=== PATIENT | female | born 1990 | race Two or more races ===

== ENCOUNTER 2016-12-24 14:35 | Outpatient (CLI) | payer MEDICAID ==
[~2016-12-24 14:35] MED LIST: IRON325 M1 PO; MOTRIN-DPS800 MG PO; NIPPLECREAM TP; PRENATAL GUMMI1 EACH PO; TYLENOL #3 DPS1 TAB PO
== END 2016-12-24 16:30 | disposition home or self-care (01) ==
LOC: 2LDRP 14:35 → BC 14:35
DX: O13.3 Gestational [pregnancy-induced] hypertension without significant proteinuria, third trimester (principal); Z3A.38 38 weeks gestation of pregnancy

== ENCOUNTER 2016-12-28 06:44 | Inpatient (IN) | payer MEDICAID ==
[~2016-12-28] VITALS: Ht 149.9 cm; Wt 73.9 kg
--- NOTE | ~2016-12-28 | FD ---
ADMIT: 12/28/2016 RM/LOC: 226 [facility] MR#: [id number] [address] [address] HAM GREENEMERLIN SALVADOR [address] [place] [address] Final Diagnosis SEX: F AGE: 26 : 1990 ADMISSION DATE: 12/28/2016 DISCHARGE DATE: 12/29/2016 PRIMARY DIAGNOSIS: Status post spontaneous vaginal delivery at term. SECONDARY DIAGNOSES: 1. Gestational hypertension. 2. Group B Streptococcus positive status. PROCEDURES PERFORMED: On 12/28/2016, spontaneous vaginal delivery with delivery of a viable female infant, weighing 6 pounds 8 ounces with scores of 9 at 1 minute and 9 at 5 minutes. Ángela Agudelo MD/ dolores JOB #: [id number] CC: Ángela Agudelo MD, Attending Physician FAMILY PHYSICIAN, Family Physician
--- NOTE | 2017-01-20 08:52 | HP ---
ADMIT: 12/28/2016 RM/LOC: 226 [facility] MR#: [id number] [address] MERLIN BAGLEY [address] [place] [address] History and Physical SEX: F AGE: 26 : 1990 DATE OF SERVICE: CHIEF COMPLAINT: Induction of labor. HISTORY OF PRESENT ILLNESS: This is a 26-year-old female, 3, para 2, who [facility] the [facility] with an intrauterine at 39 weeks' gestation with estimated date of confinement of 01/04/2017. Her estimated date of confinement is based of a 10-week ultrasound. Her has been complicated by close interval between pregnancies, anemia, and recently mildly-elevated blood pressures. Her blood pressures in the office last week were 120s over 90s and her hemoglobin was 7.5. LABORATORY DATA: Blood type is O positive. Antibody screen negative. Hepatitis B surface antigen negative. RPR nonreactive. Rubella immune. Gonorrhea and chlamydia negative. Quad screen. Normal diabetic screen 111 and group B strep is positive. PAST MEDICAL HISTORY: She denies hypertension, diabetes, asthma, kidney, or thyroid disease. PAST SURGICAL HISTORY: None. SOCIAL HISTORY: She is . She denies tobacco, alcohol, or drug use. ALLERGIES: NO KNOWN DRUG ALLERGIES. CURRENT MEDICATIONS: 1. vitamins. 2. Ferrous sulfate b.i.d. PAST OBSTETRICAL HISTORY She has had 2 term spontaneous vaginal deliveries. PHYSICAL EXAMINATION: VITAL SIGNS: Temperature 98.4, blood pressure 124/92, pulse 72, respirations 20. GENERAL: This is a pleasant female, in no acute distress. HEENT. Head is normocephalic and atraumatic. Pupils are equal, round, reactive to light and accommodation. Extraocular muscles are intact. NECK: Supple. HEART: Regular rate and rhythm. LUNGS: Clear bilaterally. ABDOMEN: Soft, nontender, nondistended, and gravid. EXTREMITIES: Nontender. FOOD PREPARATION KITCHEN AIDE: heart tones are 130s, baseline, moderate variability is present, 15 x 15 accelerations are present. Decelerations are absent. Uterine contractions are every 5 to 6 minutes. Her cervix is 5 cm, 70% effaced, and - 2 station. Fetus is vertex. Estimated weight 7.5 pounds. IMPRESSION: ADMIT: 12/28/2016 RM/LOC: 226 [facility] MR#: [id number] [address] MERLIN BAGLEY [address] [place] [address] History and Physical SEX: F AGE: 26 : 1990 1. This is a 26-year-old female, 3, para 2 with an intrauterine at 39 weeks' gestation. 2. Gestational hypertension with blood pressures in the mildly-elevated range. 3. Chronic anemia of . 4. Group B streptococcus positive. PLAN: At this time, we will admit the patient. We will start antibiotics for GBS prophylaxis. We will continue to watch her blood pressures and treat any severe range of pressures as well as consider starting Mag if needed with severe range pressures. At this time, we will type and cross match and hold 2 units in the event we need this at the time of delivery. We will use Pitocin and assisted rupture of membranes to augment labor and anticipate a spontaneous vaginal delivery. Ángela Agudelo MD/ dolores JOB #: [id number] CC: Ángela Agudelo, Attending Physician UNKNOWN, Family Physician
--- NOTE | 2017-01-20 08:56 | OR ---
ADMIT: 12/28/2016 RM/LOC: 226 [facility] MR#: [id number] [address] [address] HAM GREENE, MERLINYENNI SCOTT [address] [place] [address] Operative/Delivery Room Report SEX: F AGE: 26 : 1990 SURGERY DATE: 12/28/2016 SURGEON: Ángela Agudelo MD PROCEDURE: Removal of epidural catheter. PROCEDURE: This is a 26-year-old female, 3, now para 3, who recently delivered a viable female , with an epidural in place. Following delivery, she was placed in the sitting position. Epidural catheter was removed without any difficulty. The tip was noted to be intact. The patient tolerated the procedure well and is now recovering in her Labor and Delivery suite with her . Ángela Agudelo MD/ dolores JOB #: [id number] CC: Ángela Agudelo, Attending Physician UNKNOWN, Family Physician
--- NOTE | 2017-01-20 08:56 | OR ---
ADMIT: 12/28/2016 RM/LOC: 226 [facility] MR#: [id number] [id number] [address] FATOUMATA BONESaravanan MERLINYENNI SCOTT [address] [place] [address] Operative/Delivery Room Report SEX: F AGE: 26 : 1990 SURGERY DATE: 12/28/2016 SURGEON: Ángela Agudelo MD PREOPERATIVE DIAGNOSES: 1. Intrauterine at 39 weeks' gestation. 2. Gestational hypertension. 3. Anemia. 4. Group B streptococcus positive. POSTOPERATIVE DIAGNOSES: 1. Intrauterine at 39 weeks' gestation. 2. Gestational hypertension. 3. Anemia. 4. Group B streptococcus positive. 5. Delivery of a viable female at 1314 hours, weighing 6 pounds 8 ounces with scores of 9 at 1 minute and 9 at 5 minutes. PROCEDURE: Spontaneous vaginal delivery with repair of first-degree laceration. ANESTHESIA: Epidural and 1% lidocaine. COMPLICATIONS: None. ESTIMATED BLOOD LOSS: 250 mL. FLUIDS: Crystalloid. INDICATIONS: This is a 26-year-old female, 3, para 2, who presented to the [facility] Center with an intrauterine at 39 weeks' gestation for induction of labor. Her has been complicated by recent diagnosis of gestational hypertension, chronic anemia of , and short interval between pregnancies. At the time of initial evaluation, she was noted to be sarah every 4-5 minutes and was 5 cm dilated. She was started on antibiotics for GBS prophylaxis as well as Pitocin. Assisted rupture of membranes was performed after her second dose of antibiotics was administered. She did request and receive an epidural for pain control. She progressed to be complete quickly after assisted rupture of membranes. At which time, she was allowed to push bringing the infant's vertex to the perineum. PROCEDURE IN DETAIL: The patient was noted to be complete. She was placed in a dorsal lithotomy position, prepped and draped in the usual sterile fashion. She was asked to push and delivered the infant's vertex in the occiput anterior position over the midline. Nuchal cord was checked none was noted. ADMIT: 12/28/2016 RM/LOC: 226 [facility] MR#: [id number] [address] [address] FATOUMATA GREENE MERLINYENNI SCOTT [address] [place] [address] Operative/Delivery Room Report SEX: F AGE: 26 : 1990 The anterior shoulder, posterior shoulder, and the remainder of the were quickly delivered. The did have spontaneous cry and movement of all 4 extremities. She was passed to the mother's abdomen, where nursing personnel were in attendance; 20 units of Pitocin were infused with IV fluids to help firm the uterus. The cord was clamped x2 and cut by the father after 1 minute. Cord blood was obtained. The placenta delivered spontaneously. The uterus was not explored. Examination of the cervix and vaginal vault did not reveal any lacerations. Examination of the perineum revealed a small first- degree midline laceration. This was repaired using a single stitch of 3-0 Vicryl. The patient tolerated the procedure well. Sponge, needle, and instrument counts were correct. She did recover in her Labor and Delivery suite with her . Ángela Agudelo MD/ dolores JOB #: [id number] CC: Ángela Agudelo, Attending Physician UNKNOWN, Family Physician
== END 2016-12-29 15:35 | disposition home or self-care (01) | DRG 775 ==
LOC: 2LDRP 06:44 → BC 06:44 → 2LDRP 06:45 → BC 01-04 13:55
PROVIDERS: ADMIT Obstetrics & Gynecology
PROC: 0HQ9XZZ Repair Perineum Skin, External Approach (ICD-10-PCS; principal; 2016-12-28)
PROC: 10E0XZZ Delivery of Products of Conception, External Approach (ICD-10-PCS; principal; 2016-12-28)
PROC: 10907ZC Drainage of Amniotic Fluid, Therapeutic from Products of Conception, Via Natural or Artificial Opening (ICD-10-PCS; principal; 2016-12-28)
DX: O13.4 Gestational [pregnancy-induced] hypertension without significant proteinuria, complicating childbirth (principal); D64.9 Anemia, unspecified; O99.02 Anemia complicating childbirth; O99.824 Streptococcus B carrier state complicating childbirth; O70.0 First degree perineal laceration during delivery; Z3A.39 39 weeks gestation of pregnancy; Z37.0 Single live birth